=== PATIENT | male | born 1990 | race African-American/Black ===

== ENCOUNTER 2023-03-25 08:47 | Inpatient (IN) | payer MEDICAID, SELFPAY ==
--- NOTE | 2023-03-25 | ECG_ITS ---
Test Reason : ABD PAIN Blood Pressure : / mmHG Vent. Rate : 090 BPM Atrial Rate : 090 BPM P-R Int : 168 ms QRS Dur : 082 ms QT Int : 334 ms P-R-T Axes : 084 083 072 degrees QTc Int : 408 ms Normal sinus rhythm Normal ECG No previous ECGs available Referred By: Generic ED Physician Electronically Signed By:Francisco Pitts
--- NOTE | ~2023-03-25 | XR_ITS ---
EXAMINATION: XR CHEST CLINICAL INFORMATION: Chest pain COMPARISON: There are no previous exam available for comparison. TECHNIQUE: Frontal view of the chest was obtained. FINDINGS: The lungs are well-expanded with patchy opacity seen in both upper lobes likely infiltrate versus atelectasis. Rest of lungs are clear. The heart size and pulmonary vascularity is normal. No gross bony abnormality seen. XR/XR chest 1V IMPRESSION: Bilateral upper lobe patchy opacity likely infiltrate versus atelectasis.
--- NOTE | ~2023-03-25 | CT_ITS ---
EXAMINATION: CT CHEST WITH CONTRAST CLINICAL INFORMATION: Cough. History of tuberculosis. Evaluate for cavitary lung lesions. COMPARISON: Chest radiograph from 03/25/2023. TECHNIQUE: Multidetector volumetric CT imaging of the chest was obtained after the administration of 65 mL of Omnipaque 350 intravenous contrast without immediate adverse reactions. Axial MIP volume rendering provided. Sagittal and coronal reformatted images were obtained. This CT examination was performed using dose optimization techniques as appropriate, variously including the following: *Automated exposure control *Adjustment of mA and/or kV according to patient size (this includes techniques or standardized protocols for targeted exams where dose is matched to indication/reason for exam; i.e. extremities or head) *Use of iterative reconstruction technique DLP: 271 mGy-cm FINDINGS: LUNGS AND PLEURA: Trachea and central airways are widely patent and normal in caliber. No evidence of bronchial stenosis. There is mild respiratory motion on the images through the chest. In this patient with history of tuberculosis, there is a focus of old cystic bronchiectasis or thick-walled cavitary lesion of the posterolateral right upper lobe. A nodular opacity peripheral to this cavity measures approximately 0.8 cm transverse, 1 cm AP (images [id number], series 4). There are several micronodules in the posterior right upper lobe. There is a thin-walled 0.7 cm cystic lucency at the posterior right apex (image 102, series 4). There are clustered tree-in-bud nodules and patchy foci of consolidation with a few air bronchograms in the anterior left upper lobe. No cavitary change in the left upper lung. No pleural effusion or pneumothorax. CARDIOVASCULAR: Cardiac chambers are normal in size. No pericardial effusion. Pulmonary arteries and thoracic aorta are unremarkable. CORONARY ARTERY CALCIFICATION: None detected. MEDIASTINUM AND LOWER NECK: No mediastinal mass. The thyroid gland and esophagus are normal. LYMPHATICS: No axillary, hilar or mediastinal lymphadenopathy. Streak artifact is produced by foci of metallic density in the posterior carinal/subcarinal area. Correlate for a history of remote intervention/surgery in the mediastinum. UPPER ABDOMEN: Unremarkable. SKELETAL AND CHEST WALL: Thoracic vertebra have normal density, height and alignment. The disc spaces are maintained. No suspicious bone lesions. CT/CT chest w IV con IMPRESSION: In this patient with history of tuberculosis, there are micronodular and tree-in-bud opacities in upper lobes, predominantly anterior left upper lobe). Also, findings include a thick-walled cavitary focus in the posterior right upper lobe and patchy consolidation in the anterior left upper lobe, which is suspicious for active disease. These abnormalities could represent post primary tuberculosis. There is no associated lymphadenopathy or pleural effusion.
[2023-03-25 08:50] VITALS: BP 134/70; PULSE 115; RESP 16; TEMP 36.8; O2SAT 100; BMI 22.1
[2023-03-25 09:32] LABS: MANUAL DIFF FLAG NO
[2023-03-25 09:33] LABS: Basophils Percent Auto 0.9 % (0-2); Eosinophils Absolute Auto 0.1 X10*3/uL (0.0-0.4); Eosinophils Percent Auto 1.6 % (0-4); Hematocrit 39.5 % (42.0-52.0); Hemoglobin 13.4 g/dl (14.0-18.0); Imm Gran Abs Auto 0.01 X10*3/uL (0.00-0.03); Imm Gran Pct Auto 0.2 % (0.0-0.4); Lymphocytes Absolute Auto 1.5 X10*3/uL (1.2-4.9); Lymphocytes Percent Auto 33.6 % (20-40); Mean Corpuscular HGB Conc 33.9 g/dl (31.0-36.0); Mean Corpuscular Hemoglobin 29.1 pg (27.0-33.0); Mean Corpuscular Volume 85.7 fL (80.0-98.0); Mean Platelet Volume 10.2 fL (9.4-12.4); Monocytes Absolute Auto 0.4 X10*3/uL (0.1-1.2); Monocytes Percent Auto 9.6 % (2-11); Neutrophils Absolute Auto 2.4 x10*3/uL (2.0-8.3); Neutrophils Percent Auto 54.1 % (45-73); Platelet Count 163 X10*3/uL (160-400); Red Blood Count 4.61 X10*6/uL (4.60-5.80); Red Cell Distribution Width 12.9 % (11.0-16.0); White Blood Count 4.5 X10*3/uL (4.8-10.8)
--- NOTE | 2023-03-25 09:37 | ED.ABDPAIN ---
HPI - Abdominal Pain General Chief Complaint: Abdominal Pain Stated Complaint: Stomach Issues Time Seen by Provider: 03/25/23 09:03 Source: patient Mode of arrival: ambulatory Limitations: no limitations History of Present Illness HPI narrative: 33-year-old male hx of TB treated in 2021 presents with epigastric pain,chest pain, coughing up blood blood tinged sputum Pain has been present for the past few days worsening. No known sick contacts. He reports a similar episode happened to him in 2021 however at that time he had TB and had traveled from [place]. Patient denies fevers, chills, nausea, vomiting, headache, vision changes, dizziness,shortness of breath Related Data Home Medications Medication Instructions Recorded Confirmed No Known Home Meds 03/25/23 03/25/23 Allergies Allergy/AdvReac Type Severity Reaction Status Date / Time No Known Allergies Allergy Verified 03/25/23 13:23 Review of Systems Review of Systems Constitutional : No Weight loss, No Fever, No Chills, No Fatigue, No Malaise ENT/Mouth : No sore throat, No Rhinorrhea Eyes: No Eye Pain, No Swelling, No Redness Cardiovascular : No Chest Pain, No SOB, No Dyspnea on Exertion, No Orthopnea, No Edema, No Palpitations Respiratory : No Cough, No Sputum, No Wheezing Gastrointestinal : No Nausea, No Vomiting, No Diarrhea, No Constipation, + abdominal Pain, No Hematochezia, No Melena Genitourinary : No Dysuria, No Urinary Frequency, No Hematuria, Musculoskeletal : No joint pain, No Myalgias, No Joint Swelling Skin : No Skin Lesions, No rash Neuro : No Weakness, No Numbness, No Dizziness, No Headache Psych : No Anxiety/Panic, No Depression All other systems reviewed and are negative Yes all other systems are reviewed and are negative; No unobtainable due to endotracheal tube, Unobtainable due to mental condition, Unobtainable due to mental status or Other PMFSH Past Medical History Attestation statement: The following information was validated with the patient. Source: old records reviewed and nursing notes reviewed Social History Social History Advance Directives: No Advance Directives Information Provided: Yes Physical Exam ED Vital Signs: Vital Signs - 24 hr 03/25/23 08:50 03/25/23 12:09 03/25/23 13:10 Temperature 98.2 F Pulse Rate 115 H 74 Respiratory Rate 16 16 15 Blood Pressure 134/70 116/75 Pulse Oximetry 100 100 Oxygen Delivery Method Room Air Room Air BMI result Body Mass Index 22.1 vss Appearance: Alert.? Oriented X3.? No acute distress.? Head: Normocephalic, atraumatic, no step-offs or deformities Eyes: Pupils equal, round and reactive to light.? ENT: Pharynx normal.? Neck: Normal inspection.? Neck supple.? CVS: Normal heart rate and rhythm.? Pulses normal.? Respiratory: No respiratory distress.? Breath sounds normal.? Abdomen: Soft and nontender.? Skin: Skin warm and dry.? Normal skin color.? Normal skin turgor.? Extremities: No lower extremity edema.? No calf ttp. 5/5 strength to bilateral upper and lower extremities Neuro: Oriented X 3.? No motor deficit.? No sensory deficit. CN 2-12 intact Course Reevaluation(s) Reevaluation #1: CBC with a normocytic anemia does not require intervention. Chemistry unremarkable. D-dimer negative. Troponin negative, EKG nonischemic Time: 11:08 Reevaluation #2: X-ray did show bilateral upper lobe patchy opacities like infiltrate versus atelectasis. Patient has a history of TB in the past, upper infiltrates concerning for possible reactivation/active infection. I did speak to Infectious Disease about this case that recommends acid-fast sputum test x3. Agrees that patient should be admitted as he lives in a hotel at this time. Also recommends treatment for possible bronchitis/pneumonia will treat with ceftriaxone is a throughout. Plan at this time hospital admission CT chest with IV contrast ordered and pending Time: 11:38 Reevaluation #3: Call from [place] [facility] - Medical Decision Making Medical Decision Making [facility] Narrative: [id number] 33-year-old male presents with epigastric pain for the past few days worsening as well as cough w/ productive sputum ( blood tinged) and some a/c cp. Physical exam unremarkable. Concerns for GERD versus gastritis versus peptic ulcer disease vs TB, vs bronchitis. Unlikely perforated ulcer, acute abdomen, diverticulitis, pancreatitis, cholecystitis, cholangitis, appendicitis, obstruction. No signs of ACS, dissection, pulmonary embolism. Plan labs, imaging.. informed charge nurse patient should be placed on isolation precautions in the meantime. Differential Diagnosis Differential Diagnoses: The differential diagnosis associated with the presentation includes Concerns for GERD versus gastritis versus peptic ulcer disease vs TB, vs bronchitis. Unlikely perforated ulcer, acute abdomen, diverticulitis, pancreatitis, cholecystitis, cholangitis, appendicitis, obstruction. No signs of ACS, dissection, pulmonary embolism. Admission/Observation Consideration of admission/observation: Escalation of care including admission/observation considered Not indicated Lab Data MDM Lab Attestation statement: I reviewed the patient's lab results. 03/25/23 09:28 03/25/23 09:28 Labs: Lab Results 03/25/23 03/25/23 03/25/23 Range/Units 09:28 10:33 12:19 WBC 4.5 L (4.8-10.8) X10*3/uL RBC 4.61 (4.60-5.80) X10*6/uL Hgb 13.4 L (14.0-18.0) g/dl Hct 39.5 L (42.0-52.0) % MCV 85.7 (80.0-98.0) fL MCH 29.1 (27.0-33.0) pg MCHC 33.9 (31.0-36.0) g/dl RDW 12.9 (11.0-16.0) % Plt Count 163 (160-400) X10*3/uL MPV 10.2 (9.4-12.4) fL Immature Gran % (Auto) 0.2 (0.0-0.4) % Neut % (Auto) 54.1 (45-73) % Lymph % (Auto) 33.6 (20-40) % [place] % (Auto) 9.6 (2-11) % Eos % (Auto) 1.6 (0-4) % Baso % (Auto) 0.9 (0-2) % Lymph # (Auto) 1.5 (1.2-4.9) X10*3/uL [place] # (Auto) 0.4 (0.1-1.2) X10*3/uL Eos # (Auto) 0.1 (0.0-0.4) X10*3/uL Baso # (Auto) 0.0 (0.0-0.2) X10*3/uL Abs Immat Gran (auto) 0.01 (0.00-0.03) X10*3/uL Absolute Neuts (auto) 2.4 (2.0-8.3) x10*3/uL Absolute Nucleated RBC 0.000 (0.0-0.012) X10*3/uL Nucleated RBC % (auto) 0.0 (0.0-0.2) /100WBC PT 13.2 (11.1-13.3) SEC INR 1.1 (0.9-1.1) D-Dimer High Sensitivty < 150 NG/ML Sodium 142 (135-145) mmol/L Potassium 3.9 (3.3-5.1) mmol/L Chloride 103 (96-108) mmol/L Carbon Dioxide 28 (22-29) mmol/L Anion Gap 15 (12-20) BUN 18 H (9-16) mg/dL Creatinine 0.89 (0.5-1.4) mg/dL Estim Creat Clear Calc 105.8 Estimated GFR > 60 Random Glucose 98 (60-115) mg/dL Calcium 10.0 (8.4-10.2) mg/dL Troponin I High Sens < 2.7 (<3.5-35.0) ng/L HIV 1&2 Ab/P24 Ag 4thGn Nonreactive (Nonreactive) Independent Interpretation I performed an independent interpretation of an: EKG Radiology Impression Discussion of test interpretation with radiology: I have reviewed the radiologist's reading. Prescription Management I considered prescription management with: Other Medications Administered Discontinued Medications Generic Name Dose Route Start Last Admin Trade Name Freq PRN Reason Stop Dose Admin Ceftriaxone Sodium 1 gm/ 50 mls @ 100 mls/hr 03/25/23 11:15 03/25/23 13:20 Sodium Chloride IV 03/25/23 11:44 100 mls/hr ONCE ONE Administration Iohexol 65 ml 03/25/23 12:09 03/25/23 12:10 Iohexol 350 Mg/Ml 100 Ml Infus..Btl IV 03/25/23 12:10 65 ml ONCE ONE Administration Sodium Chloride 15 ml 03/25/23 11:06 03/25/23 12:09 Sodium Chloride 3 % Inhalation 15 Ml Vial.Neb INHALE 03/25/23 11:07 15 ml ONCE ONE Administration Critical Care Time Critical Care Time Critical Care Time: Yes Total Critical Care Time: 45 Attestation: I attest to this time spent taking care of the patient, obtaining history, physical, reviewing labs, imaging, speaking to my attending, speaking to specialist. Discharge Plan Discharge Clinical Impression: Reactivation TB, Epigastric pain Patient Disposition: Admitted As Inpatient Additional Instructions: Take your medications as prescribed. If you were prescribed antibiotics today, it is important that you take your medication to their entirety, do not skip any doses, do not finish them early. Follow-up with your primary care provider this week. Return to the emergency department with new or worsening symptoms. Such as fevers, chills, chest pain, shortness of breath, nausea, vomiting, dizziness, headache, vision changes, lethargy In case of emergency call 911 Your medications are at [address] [facility]. XR/XR chest 1V IMPRESSION: Bilateral upper lobe patchy opacity likely infiltrate versus atelectasis.
[2023-03-25 09:46] LABS: Anion Gap 15 (12-20); Blood Urea Nitrogen 18 mg/dL (9-16); Carbon Dioxide 28 mmol/L (22-29); Chloride 103 mmol/L (96-108); Creatinine Clr Calc Pharmacy 105.8; Estimated Glomerular Filt Rate > 60; Glucose Random 98 mg/dL (60-115); Potassium 3.9 mmol/L (3.3-5.1); Sodium 142 mmol/L (135-145)
--- NOTE | 2023-03-25 09:55 | MHC.EDTECH ---
Duplicate order for EKG. Second EKG nt needed per PA
[2023-03-25 09:56] LABS: Troponin-I High Sensitivity < 2.7 ng/L (<3.5-35.0)
[2023-03-25 10:47] LABS: INTERNATIONAL NORM RATIO 1.1 (0.9-1.1); Prothrombin Time 13.2 SEC (11.1-13.3)
[2023-03-25 10:49] LABS: D Dimer High Sensitivity < 150 NG/ML
[2023-03-25 12:09] VITALS: RESP 16; O2SAT 97
[2023-03-25] MEDS: Sodium Chloride 3 % Inhalation 15 ML VIAL.NEB INHALE (12:09)
[2023-03-25] MEDS: iohexoL 350 MG/ML 100 ML INFUS..BTL 65 ML IV (12:10)
[2023-03-25 13:04] LABS: HIV AB/AG Nonreactive (Nonreactive); HIV Num 1 0.05 S/CO (0.00-0.99)
--- NOTE | 2023-03-25 13:05 | PC.NURSE ---
per Adriana INFANTE no need for blood cultures prior to abx administration
[2023-03-25 13:10] VITALS: BP 116/75; PULSE 74; RESP 15; O2SAT 100
[2023-03-25] MEDS: cefTRIAXone sodium 1 GM in 0.9 % Sodium Chloride 50 ML IV (13:20)
--- NOTE | 2023-03-25 13:21 | P.HPHOSP_ITS ---
History of Present Illness Date of Service: 03/25/23 Attending physician on admission: Crispin Kaufman Chief Complaint: Abdominal pain, chest pain, hemoptysis Pt is a 33-year-old Stateless Creole-speaking male with a PMH significant for?TB in 2021 s/p treatment not on home medications who presents to the ED with?epigastric pain and hemoptysis for the past few days. Pt originally diagnosed with TB while living in [place], reports being treated for 8-9 months. Patient unsure medications he was taking. Patient denies any other PMH or being on any home medications. Recently moved to the area in November of 2022. Patient states symptoms began a few days ago when he developed cough with blood-tinged sputum, epigastric/central chest pain associated with coughing, and fatigue. Denies night sweats, but also notes he has recent unintended weight loss. Has felt feverish but has not taken his temperature. Pt states he felt much worse when he was first diagnosed with TB, as he had night sweats and was coughing up a large amount of blood at that time, not just blood-tinged sputum. He currently resides in a fdc and unable to self-isolate. In the ED pt was initially tachycardic up to 115, otherwise vitals WNL. Labs were largely unremarkable. WBC slightly low at 4.5, H&H of slightly low at 13 0.4/39.5. Electrolytes WNL. Renal function baseline. Troponin negative. CXR showed bilateral upper lobe patchy opacity likely infiltrate versus atelectasis. CT?of chest w/ contrast showing micro nodular and tree-in-bud opacities in upper lobes and patchy consolidation in the anterior left lobe, suspicious for active disease. Abnormalities could represent post primary tuberculosis. Did not find any associated lymphadenopathy or pleural effusion. EKG demonstrated normal sinus rhythm without evidence of significant ST elevations or depressions. Pt was treated with ceftriaxone and azithromycin. Pt will be admitted to the hospital for treatment and further evaluation of possible TB reactivation. Review of Systems 2 Review of Systems: Epigastric/chest pain associated with cough Blood tinged sputum Fatigue Unintended weight loss Subjective fever No chest pressure, palpitations Denies SOB PMFSH Medical History (Updated 03/25/23 @ 14:58 by ARELIS De La O) Tuberculosis Social History Household Members: Spouse and Children Do you presently have visiting nurse or other home services: No Patient Tobacco Use Status: Never used Tobacco Use of substances other than those prescribed or required for medical reasons: No Currently Displaying Signs/Symptoms of Drug Intoxication Withdrawal: No Have you been hit, kicked, punched, or otherwise hurt by someone within the past year? If so, by whom?: No Do you feel safe in your current relationship?: Yes Is there a partner from a previous relationship who is making you feel unsafe now?: No Are you made to feel afraid or neglected: No Advance Directives: No Advance Directives Information Provided: Yes Do you have thoughts of harming others: None Do you have a plan to hurt others: No Plan Recently lost weight without trying: Yes How much weight loss: Not applicable Eating poorly because of decreased appetite: No Nutrition screen score: 2 Nutrition Risks: No Nutritional Risk Poor oral hygiene: No service: No Meds Allergies Allergy/AdvReac Type Severity Reaction Status Date / Time No Known Allergies Allergy Verified 03/25/23 13:23 Active Medications: Current Medications Sodium Chloride (Sodium Chloride 3 % Inhalation 15 Ml Vial.Neb) 15 ml INHALE ONCE ONE Stop: 03/26/23 11:07 Sodium Chloride (Sodium Chloride 3 % Inhalation 15 Ml Vial.Neb) 15 ml INHALE ONCE ONE Stop: 03/27/23 11:07 Home Medications Medication Instructions Recorded Confirmed Last Taken Type No Known Home Meds 03/25/23 03/25/23 Unknown History Physical Exam 2 Vital Signs and Narrative: Vital Signs: Last Vital Signs Temp 98.2 F 03/25/23 08:50 Pulse 74 03/25/23 13:10 Resp 15 03/25/23 13:10 BP 116/75 03/25/23 13:10 Pulse Ox 100 03/25/23 13:10 O2 Del Method Room Air 03/25/23 13:10 BMI result Body Mass Index 22.1 Constitutional: Alert, in no acute distress. Mental Status: Oriented to person, place and time. Eyes: Pupils are equal, round, and reactive to light. Ear, Nose, and Throat: Oropharynx clear, mucous membranes moist. Ears and nose without deformities. Trachea midline. Respiratory: Clear to auscultation bilaterally. No wheezing, rales, or rhonchi. Cardiovascular: S1, S2 regular. No murmurs, rubs, or gallops. Gastrointestinal: Abdomen soft, non-tender, non-distended. Normal bowel sounds. Neurologic: Cranial nerves II-XII are grossly intact bilaterally. No focal neurological deficits. Moves all extremities spontaneously. Skin: Warm, dry. Musculoskeletal: No cyanosis or clubbing. Extremities: No edema. Psychiatric: Normal mood and affect. Results Labs 03/26/23 05:17 03/25/23 09:28 Labs: Laboratory Results - last 24 hr 03/25/23 03/25/23 03/25/23 09:28 10:33 12:19 MCV 85.7 MCH 29.1 MCHC 33.9 RDW 12.9 Plt Count 163 MPV 10.2 Immature Gran % (Auto) 0.2 Neut % (Auto) 54.1 Lymph % (Auto) 33.6 [place] % (Auto) 9.6 Eos % (Auto) 1.6 Baso % (Auto) 0.9 Lymph # (Auto) 1.5 [place] # (Auto) 0.4 Eos # (Auto) 0.1 Baso # (Auto) 0.0 Abs Immat Gran (auto) 0.01 Absolute Neuts (auto) 2.4 Absolute Nucleated RBC 0.000 Nucleated RBC % (auto) 0.0 PT 13.2 INR 1.1 D-Dimer High Sensitivty < 150 Anion Gap 15 Estim Creat Clear Calc 105.8 Estimated GFR > 60 Random Glucose 98 Calcium 10.0 HIV 1&2 Ab/P24 Ag 4thGn Nonreactive Imaging Radiologist's Impressions: Impressions Chest X-Ray 03/25/23 09:55 IMPRESSION: Bilateral upper lobe patchy opacity likely infiltrate versus atelectasis. Assessment and Plan (1) Hemoptysis: Status: Acute Plan Pt is a 33-year-old Stateless Creole-speaking male with a PMH significant for?TB in 2021 s/p treatment not on home medications who presents to the ED with?epigastric pain and hemoptysis for the past few days. Possible TB re-activation Pt with hemoptysis, fatigue, weight loss, cough, chest pain associated with cough Originally diagnosed with TB while living in [place], reports being treated for 8-9 [address] Chest CT with contrast with tree-in-bud opacities in upper lobes, suspicious for active disease Will treat for now with ceftriaxone and azithromycin, started Will check acid-fast sputum test x3 Infectious disease consult Will check respiratory panel Isolation, droplet and contact precautions Full Code Attending:?Dr. Kaufman DVT Prophylaxis: Lovenox Pt will require a hospitalization of at least two nights for treatment and further evaluation of possible TB reactivation. Pt will be treated with IV antibiotics, isolation, and specialist consultation. Quality Stroke Does the patient have a stroke diagnosis?: No VTE Prior VTE?: No VTE Risk Level:: Medical - moderate - high VTE Device Contraindication: Treatment Not Indicated VTE Drug Contraindication: N/A - Med Ordered
--- NOTE | 2023-03-25 13:26 | PHA.MEDREC ---
Pharmacy Consult ? Medication Reconciliation Pharmacy has completed the medication reconciliation. Ice Delivery Driver used on IPAD, patient confirmed he is not on any medications at home.
[2023-03-25] MEDS: Azithromycin 500 MG in 0.9 % Sodium Chloride 250 ML 125 MG IV (14:13)
--- NOTE | 2023-03-25 15:05 | W.PM.IDCN ---
History of Present Illness Data of Consult Service Date: 03/25/23 Requesting physician: Aj Carlisle Primary Care Provider: None Physician HPI Reason for consult: possible active tuberculosis He presents with 6/10 epigastric pain for 2-3 days to ER. He mentioned he has had some streaking hemoptysis as well. He had CXR and then CT with some small nodules and also upper lung opacities bilaterally. He has no fever or chills. He said he was diagnosed with tuberculosis in [place] several years ago and took tuberculosis medication he thinks. I have no records Also I do not have any records from [facility]. 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 Unobtainable due to mental condition [facility] Past Medical History Medical History (Updated 04/08/23 @ 00:03 by Mackenzie Roe) Tuberculosis Social History Social History Household Members: Spouse and Children Do you presently have visiting nurse or other home services: No Patient Tobacco Use Status: Never used Tobacco service: No Meds Allergies Allergy/AdvReac Type Severity Reaction Status Date / Time No Known Allergies Allergy Verified 03/25/23 13:23 Active Medications: Current Medications Acetaminophen (Acetaminophen 325 Mg Tablet) 650 mg PO Q6H PRN PRN Reason: Pain, Mild (Pain Scale 1-3) Benzonatate (Benzonatate 100 Mg Capsule) 100 mg PO TID PRN PRN Reason: Cough Docusate Sodium (Docusate Sodium 100 Mg Capsule) 100 mg PO DAILY PRN PRN Reason: Constipation Enoxaparin Sodium (Enoxaparin Sodium 40 Mg/0.4 Ml Syringe) 40 mg SUBCUT Q24H HERNAN Ceftriaxone Sodium 1 gm/ (Sodium Chloride) 50 mls @ 100 mls/hr IV Q24H HERNAN Azithromycin 500 mg/ Sodium (Chloride) 250 mls @ 125 mls/hr IV Q24H HERNAN Melatonin (Melatonin 3 Mg Tablet) 6 mg PO BEDTIME PRN PRN Reason: Insomnia Ondansetron HCl (Ondansetron Hcl 4 Mg/2 Ml Vial) 4 mg IVPUSH Q8H PRN PRN Reason: Nausea and Vomiting Sodium Chloride (Sodium Chloride 3 % Inhalation 15 Ml Vial.Neb) 15 ml INHALE ONCE ONE Stop: 03/26/23 11:07 Sodium Chloride (Sodium Chloride 3 % Inhalation 15 Ml Vial.Neb) 15 ml INHALE ONCE ONE Stop: 03/27/23 11:07 Sodium Chloride (0.9 % Sodium Chloride Flush 3 Ml Syringe) 3 ml IVFLUSH QSHIFT [facility] Home Medications ?Medication ?Instructions ?Recorded ?Confirmed ?Last Taken ?Type No Known Home Meds 03/25/23 03/25/23 Unknown History Physical Exam Vital Signs: Vital Signs: Last Vital Signs Temp 98.2 F 03/25/23 08:50 Pulse 74 03/25/23 13:10 Resp 15 03/25/23 13:10 BP 116/75 03/25/23 13:10 Pulse Ox 100 03/25/23 13:10 O2 Del Method Room Air 03/25/23 13:10 BMI result Body Mass Index 22.1 Const: Other: no oxygen General: cooperative HEENT: Head: Yes normal to inspection Face and sinus: Yes normal facial exam Mouth: Normal oral and palatal mucosa present Teeth and gingiva: dentition normal Eyes: General: appearance normal, both eyes and all related structures Pupils: Equal, round and reactive pupils present Resp: Effort & Inspection: normal respiratory effort Cardio: Rate: regular rate Rhythm: regular rhythm GI: Palpation (GI): Soft to palpation and nontender : General: Yes no CVA tenderness Back/Spine/Pelvis: Back: no CVA tenderness Skin: General skin exam: no rashes or lesions noted Neuro: General: moves all extremities Cranial nerves: Yes Equal, round and reactive pupils present Extrem: General: Yes normal to inspection Psych: Appearance: grossly normal Results Labs 03/26/23 05:17 03/25/23 09:28 Labs: Short CBC 03/25/23 Range/Units 09:28 WBC 4.5 L (4.8-10.8) X10*3/uL Hgb 13.4 L (14.0-18.0) g/dl Hct 39.5 L (42.0-52.0) % Plt Count 163 (160-400) X10*3/uL BMP 03/25/23 09:28 Sodium 142 Potassium 3.9 Chloride 103 Carbon Dioxide 28 BUN 18 H Creatinine 0.89 Calcium 10.0 Assessment and Plan (1) Hemoptysis: Status: Resolved There concern over active tuberculosis with reactivation or new infection He had supposedly been treated not sure how long for active pulmonary TB. Check sputum daily x 3 for AFB smear and culture Respiratory isolation and DPH contact if positive since lives in hotel Would treat 3-5 days IV Ceftriaxone and Zmax for CAP GI eval if still has pain Check HIV test (2) Epigastric pain: Status: Resolved
[2023-03-25] MEDS: Enoxaparin Sodium 40 MG/0.4 ML SYRINGE SUBCUT (15:44)
[2023-03-25 16:14] VITALS: BP 141/88; PULSE 76; RESP 17; TEMP 36.9; O2SAT 100
[2023-03-25] MEDS: 0.9 % Sodium Chloride Flush 3 ML SYRINGE IVFLUSH (16:55)
[2023-03-25 19:54] VITALS: BP 127/73; PULSE 64; RESP 16; TEMP 36.6; O2SAT 100
[2023-03-26] MEDS: 0.9 % Sodium Chloride Flush 3 ML SYRINGE IVFLUSH ×3 (00:30→14:38)
[2023-03-26 03:20] VITALS: BP 119/83; PULSE 80; RESP 14; TEMP 36.6; O2SAT 100
[2023-03-26 05:38] LABS: Hemoglobin 13.2 g/dl (14.0-18.0); Mean Corpuscular HGB Conc 33.8 g/dl (31.0-36.0); Mean Corpuscular Hemoglobin 29.3 pg (27.0-33.0); Mean Corpuscular Volume 86.7 fL (80.0-98.0); Mean Platelet Volume 10.6 fL (9.4-12.4); Platelet Count 171 X10*3/uL (160-400); White Blood Count 4.4 X10*3/uL (4.8-10.8)
[2023-03-26 08:00] VITALS: BP 105/63; PULSE 64; RESP 18; TEMP 36.7; O2SAT 100
--- NOTE | 2023-03-26 09:05 | MHC.CM.PN ---
Addendum entered by Enedina Crouch RN 03/26/23 09:09: [employer] INSURANCE CARD IS ON FILE BUT BENEFITS HAVE NOT YET BEEN VERIFIED Original Note: PATIENT ON TB PRECAUTIONS PER REIVEW OF CHART AND CONVERSATION WITH RN, PATIENT IS INDEPENDENT WITH ADLS. HE DOES NOT CONVERSE IN [place]. PLANS ARE FOR TB R/O AND PLAN FOR DC NEEDS AT THIS TIME. IT DOES NOT APPEARS THAT PATIENT HAS INSURANCE BENEFITS. FACE SHEET TO BE FAXED TO [employer] FOR REVIEW AND POSSIBLE ASSIST.
[2023-03-26] MEDS: cefTRIAXone sodium 1 GM in 0.9 % Sodium Chloride 50 ML IV (11:12)
[2023-03-26] MEDS: Azithromycin 500 MG in 0.9 % Sodium Chloride 250 ML 125 MG IV (12:02)
--- NOTE | 2023-03-26 12:40 | P.PNIM_ITS ---
Subjective Subjective Date of Service: 03/26/23 Interval History: seen and evlauated feels better no chest pain no more hemoptysis Review of Systems Review of Systems: Yes all other systems are reviewed and are negative Physical Exam 2 Vital Signs: Vital Signs: Last Vital Signs Temp 98.1 F 03/26/23 08:00 Pulse 64 03/26/23 08:00 Resp 18 03/26/23 08:00 BP 105/63 03/26/23 08:00 Pulse Ox 100 03/26/23 08:00 O2 Del Method Room Air 03/26/23 08:00 BMI result Body Mass Index 22.1 Const: Other: Constitutional : Awake, interactive, not in distress Neck : Normal inspection, Supple Cardiovascular : RRR, no JVP, no lower extremity edema Respiratory : good bilateral air entry, no crackles, wheezes or rhonchi Gastrointestinal: soft, lax, Normal bowel sounds, Non tender Skin : Warm, Dry Neurological : Alert & oriented x3, No focal deficit Objective Data Active Medications Acetaminophen (Acetaminophen 325 Mg Tablet) 650 mg PO Q6H PRN PRN Reason: Pain, Mild (Pain Scale 1-3) Benzonatate (Benzonatate 100 Mg Capsule) 100 mg PO TID PRN PRN Reason: Cough Docusate Sodium (Docusate Sodium 100 Mg Capsule) 100 mg PO DAILY PRN PRN Reason: Constipation Enoxaparin Sodium (Enoxaparin Sodium 40 Mg/0.4 Ml Syringe) 40 mg SUBCUT Q24H [facility] Last Admin: 03/25/23 15:44 Dose: 40 mg Documented By: NINI Ceftriaxone Sodium 1 gm/ (Sodium Chloride) 50 mls @ 100 mls/hr IV Q24H [facility] Last Infusion: 03/26/23 11:49 Dose: Infused Documented By: TARIK Azithromycin 500 mg/ Sodium (Chloride) 250 mls @ 125 mls/hr IV Q24H [facility] Last Admin: 03/26/23 12:02 Dose: 125 mls/hr Documented By: TARIK Melatonin (Melatonin 3 Mg Tablet) 6 mg PO BEDTIME PRN PRN Reason: Insomnia Ondansetron HCl (Ondansetron Hcl 4 Mg/2 Ml Vial) 4 mg IVPUSH Q8H PRN PRN Reason: Nausea and Vomiting Sodium Chloride (Sodium Chloride 3 % Inhalation 15 Ml Vial.Neb) 15 ml INHALE ONCE ONE Stop: 03/27/23 11:07 Sodium Chloride (0.9 % Sodium Chloride Flush 3 Ml Syringe) 3 ml IVFLUSH QSHIFT [facility] Last Admin: 03/26/23 10:22 Dose: 3 ml Documented By: TARIK Labs 03/26/23 05:17 03/25/23 09:28 Labs: Laboratory Results - last 24 hr 03/25/23 03/26/23 12:19 05:17 MCV 86.7 MCH 29.3 MCHC 33.8 RDW 13.0 Plt Count 171 MPV 10.6 Absolute Nucleated RBC 0.000 Nucleated RBC % (auto) 0.0 Hold Purple Top Cancelled HIV 1&2 Ab/P24 Ag 4thGn Nonreactive Assessment and Plan (1) Hemoptysis: Status: Acute Plan Pt is a 33-year-old [place] Creole-speaking male with a PMH significant for?TB in 2021 s/p treatment not on home medications who presents to the ED with?epigastric pain and hemoptysis for the past few days. Hemoptysis Concern of TB reactivation vs CAP Pending cultures Pending Acid fast smear and culture Chest CT with contrast with tree-in-bud opacities in upper lobes, suspicious for active disease Continue ceftriaxone and azithromycin, started Infectious disease consult pending respiratory panel Isolation, droplet and contact precautions Full Code DVT Prophylaxis: Lovenox Pt will require a hospitalization overnight for further evaluation of possible TB reactivation. Pt will be treated with IV antibiotics, isolation, and specialist consultation. Quality Stroke Does the patient have a stroke diagnosis?: No VTE Prior VTE?: No VTE Risk Level:: Medical - moderate - high VTE Device Contraindication: Treatment Not Indicated VTE Drug Contraindication: N/A - Med Ordered
[2023-03-26 13:53] LABS: Adenovirus PCR Not Detected (Not Detect.); Bordetella parapertussis PCR Not Detected (Not Detect.); Bordetella pertussis PCR Not Detected (Not Detect.); Chlamydia pneumoniae PCR Not Detected (Not Detect.); Coronavirus 229E PCR Not Detected (Not Detect.); Coronavirus HKU1 PCR Not Detected (Not Detect.); Coronavirus NL63 PCR Not Detected (Not Detect.); Coronavirus OC43 PCR Not Detected (Not Detect.); Human metapneumovirus PCR Not Detected (Not Detect.); Influenza A PCR Not Detected (Not Detect.); Influenza B PCR Not Detected (Not Detect.); Mycoplasma pneumoniae PCR Not Detected (Not Detect.); Parainfluenza 1 PCR Not Detected (Not Detect.); Parainfluenza 2 PCR Not Detected (Not Detect.); Parainfluenza 3 PCR Not Detected (Not Detect.); Parainfluenza 4 PCR Not Detected (Not Detect.); RSV PCR Not Detected (Not Detect.); Rhino/Enterovirus PCR Not Detected (Not Detect.); SARS-CoV-2 PCR Not Detected (Not Detect.)
[2023-03-26] MEDS: Enoxaparin Sodium 40 MG/0.4 ML SYRINGE SUBCUT (14:37)
--- NOTE | 2023-03-26 14:45 | PC.NURSE ---
Per [facility] 2 acid fast sputum specimens collected 03/25. One acid fast sputum collected today at 11:20 by this RN.
[2023-03-26 15:45] VITALS: BP 115/67; PULSE 67; RESP 18; TEMP 37; O2SAT 99
[2023-03-26 19:42] VITALS: BP 101/68; PULSE 74; RESP 18; TEMP 36.7; O2SAT 99
[2023-03-27 04:00] VITALS: BP 111/72; PULSE 77; RESP 16; TEMP 36.7; O2SAT 100
[2023-03-27] MEDS: 0.9 % Sodium Chloride Flush 3 ML SYRINGE IVFLUSH ×4 (06:08→21:07)
[2023-03-27 07:39] VITALS: BP 116/73; PULSE 66; RESP 16; TEMP 36.5; O2SAT 99
[2023-03-27] MEDS: cefTRIAXone sodium 1 GM in 0.9 % Sodium Chloride 50 ML IV (11:10)
[2023-03-27] MEDS: Azithromycin 500 MG in 0.9 % Sodium Chloride 250 ML 125 MG IV (11:50)
--- NOTE | 2023-03-27 11:54 | P.PNIM_ITS ---
Subjective Subjective Date of Service: 03/27/23 Interval History: seen and evlauated feels better no chest pain no more hemoptysis Review of Systems Review of Systems: Yes all other systems are reviewed and are negative Physical Exam 2 Vital Signs: Vital Signs: Last Vital Signs Temp 97.7 F 03/27/23 07:39 Pulse 66 03/27/23 07:39 Resp 16 03/27/23 07:39 BP 116/73 03/27/23 07:39 Pulse Ox 99 03/27/23 07:39 O2 Del Method Room Air 03/27/23 04:00 BMI result Body Mass Index 22.1 Const: Other: Constitutional : Awake, interactive, not in distress Neck : Normal inspection, Supple Cardiovascular : RRR, no JVP, no lower extremity edema Respiratory : good bilateral air entry, no crackles, wheezes or rhonchi Gastrointestinal: soft, lax, Normal bowel sounds, Non tender Skin : Warm, Dry Neurological : Alert & oriented x3, No focal deficit Objective Data Active Medications Acetaminophen (Acetaminophen 325 Mg Tablet) 650 mg PO Q6H PRN PRN Reason: Pain, Mild (Pain Scale 1-3) Benzonatate (Benzonatate 100 Mg Capsule) 100 mg PO TID PRN PRN Reason: Cough Docusate Sodium (Docusate Sodium 100 Mg Capsule) 100 mg PO DAILY PRN PRN Reason: Constipation Enoxaparin Sodium (Enoxaparin Sodium 40 Mg/0.4 Ml Syringe) 40 mg SUBCUT Q24H [facility] Last Admin: 03/26/23 14:37 Dose: 40 mg Documented By: TARIK Ceftriaxone Sodium 1 gm/ (Sodium Chloride) 50 mls @ 100 mls/hr IV Q24H [facility] Last Infusion: 03/27/23 11:40 Dose: Infused Documented By: TARIK Azithromycin 500 mg/ Sodium (Chloride) 250 mls @ 125 mls/hr IV Q24H [facility] Last Infusion: 03/26/23 14:30 Dose: Infused Documented By: TARIK Melatonin (Melatonin 3 Mg Tablet) 6 mg PO BEDTIME PRN PRN Reason: Insomnia Ondansetron HCl (Ondansetron Hcl 4 Mg/2 Ml Vial) 4 mg IVPUSH Q8H PRN PRN Reason: Nausea and Vomiting Sodium Chloride (0.9 % Sodium Chloride Flush 3 Ml Syringe) 3 ml IVFLUSH QSHIFT [facility] Last Admin: 03/27/23 09:20 Dose: 3 ml Documented By: TARIK Labs 03/26/23 05:17 03/25/23 09:28 Labs: Laboratory Results - last 24 hr 03/25/23 15:22 Respiratory Panel [place] See Note Adenovirus (Rapid PCR) Not Detected B.pert (TEM-PCR) Not Detected B.parapertussis DNA PCR Not Detected C. pneumoniae DNA (PCR) Not Detected Coronavirus OC43 (PCR) Not Detected Coronavirus HKU1 (PCR) Not Detected Coronavirus 229E (PCR) Not Detected Coronavirus NL63 (PCR) Not Detected Human Metapneumovir PCR Not Detected Influenza A (RT-PCR) Not Detected Influenza B (RT-PCR) Not Detected M. pneumoniae (PCR) Not Detected Parainfluenza 1 (PCR) Not Detected Parainfluenza 2 (PCR) Not Detected Parainfluenza 3 (PCR) Not Detected Parainfluenza 4 (PCR) Not Detected RSV (PCR) Not Detected Entero/Rhino (PCR) Not Detected SARS-CoV-2 RNA (RT-PCR) Not Detected Assessment and Plan (1) Hemoptysis: Status: Acute Plan Pt is a 33-year-old [place] Creole-speaking male with a PMH significant for?TB in 2021 s/p treatment not on home medications who presents to the ED with?epigastric pain and hemoptysis for the past few days. Hemoptysis Concern of TB reactivation vs CAP Pending cultures Pending Acid fast smear and culture Chest CT with contrast with tree-in-bud opacities in upper lobes, suspicious for active disease Continue ceftriaxone and azithromycin, started Infectious disease consult pending respiratory panel Isolation, droplet and contact precautions Full Code DVT Prophylaxis: Lovenox Pt will require a hospitalization overnight for further evaluation of possible TB reactivation. Pt will be treated with IV antibiotics, isolation, and specialist consultation. Quality Stroke Does the patient have a stroke diagnosis?: No VTE Prior VTE?: No VTE Risk Level:: Medical - moderate - high VTE Device Contraindication: Treatment Not Indicated VTE Drug Contraindication: N/A - Med Ordered
--- NOTE | 2023-03-27 12:07 | PC.NURSE ---
Addendum entered by Krys Romero RN 03/27/23 13:01: Sputum spec collected and sent to lab. Original Note: Per MD Carter, Pt should have 1 more acid fast bacilli sputum specimen sent to lab, due to the fact that two specimens were sent on the . Per sputum should be sent 1 daily for a total of three specimens. Pt aware, pending last sputum collection.
[2023-03-27] MEDS: Enoxaparin Sodium 40 MG/0.4 ML SYRINGE SUBCUT (14:43)
[2023-03-27 15:31] VITALS: BP 122/65; PULSE 71; RESP 18; TEMP 36.8; O2SAT 99
[2023-03-27 19:48] VITALS: BP 128/77; PULSE 65; RESP 18; TEMP 36.8; O2SAT 100
[2023-03-28 04:00] VITALS: BP 125/62; PULSE 70; RESP 18; TEMP 36.7; O2SAT 98
[2023-03-28 07:58] VITALS: BP 135/77; PULSE 65; RESP 18; TEMP 36.7; O2SAT 100
--- NOTE | 2023-03-28 10:47 | P.PNIM_ITS ---
Subjective Subjective Date of Service: 03/28/23 Interval History: seen and evlauated feels better no chest pain no more hemoptysis Pending Acid-fast studies Review of Systems Review of Systems: Yes all other systems are reviewed and are negative Physical Exam 2 Vital Signs: Vital Signs: Last Vital Signs Temp 98.1 F 03/28/23 07:58 Pulse 65 03/28/23 07:58 Resp 18 03/28/23 07:58 BP 135/77 03/28/23 07:58 Pulse Ox 100 03/28/23 07:58 O2 Del Method Room Air 03/28/23 07:58 BMI result Body Mass Index 22.1 Const: Other: Constitutional : Awake, interactive, not in distress Neck : Normal inspection, Supple Cardiovascular : RRR, no JVP, no lower extremity edema Respiratory : good bilateral air entry, no crackles, wheezes or rhonchi Gastrointestinal: soft, lax, Normal bowel sounds, Non tender Skin : Warm, Dry Neurological : Alert & oriented x3, No focal deficit Objective Data Active Medications Acetaminophen (Acetaminophen 325 Mg Tablet) 650 mg PO Q6H PRN PRN Reason: Pain, Mild (Pain Scale 1-3) Benzonatate (Benzonatate 100 Mg Capsule) 100 mg PO TID PRN PRN Reason: Cough Docusate Sodium (Docusate Sodium 100 Mg Capsule) 100 mg PO DAILY PRN PRN Reason: Constipation Enoxaparin Sodium (Enoxaparin Sodium 40 Mg/0.4 Ml Syringe) 40 mg SUBCUT Q24H [facility] Last Admin: 03/27/23 14:43 Dose: 40 mg Documented By: TARIK Guaifenesin (Guaifenesin La 600 Mg Tab.Er.12h) 600 mg PO BID [facility] Ceftriaxone Sodium 1 gm/ (Sodium Chloride) 50 mls @ 100 mls/hr IV Q24H [facility] Last Infusion: 03/27/23 11:40 Dose: Infused Documented By: TARIK Azithromycin 500 mg/ Sodium (Chloride) 250 mls @ 125 mls/hr IV Q24H [facility] Last Infusion: 03/27/23 14:02 Dose: Infused Documented By: TARIK Melatonin (Melatonin 3 Mg Tablet) 6 mg PO BEDTIME PRN PRN Reason: Insomnia Omeprazole (Omeprazole 20 Mg Capsule.) 20 mg PO BID@0630,1630 [facility] Ondansetron HCl (Ondansetron Hcl 4 Mg/2 Ml Vial) 4 mg IVPUSH Q8H PRN PRN Reason: Nausea and Vomiting Sodium Chloride (0.9 % Sodium Chloride Flush 3 Ml Syringe) 3 ml IVFLUSH QSHIFT [facility] Last Admin: 03/27/23 21:07 Dose: 3 ml Documented By: RILEY Labs 03/26/23 05:17 03/25/23 09:28 Labs: Laboratory Results - last 24 hr 03/28/23 09:39 Hold Purple Top SEE NOTE Assessment and Plan (1) Hemoptysis: Status: Acute Plan Pt is a 33-year-old [place] Creole-speaking male with a PMH significant for?TB in 2021 s/p treatment not on home medications who presents to the ED with?epigastric pain and hemoptysis for the past few days. Hemoptysis Concern of TB reactivation vs CAP Chest CT with contrast with tree-in-bud opacities in upper lobes, suspicious for active disease Pending Acid fast smear and culture Negative respiratory panel Isolation, droplet and contact precautions Infectious disease input appreciated Continue ceftriaxone and azithromycin, started Full Code DVT Prophylaxis: Lovenox Pt will require a hospitalization overnight for further evaluation of possible TB reactivation. Pt will be treated with IV antibiotics, isolation, and specialist consultation. Quality Stroke Does the patient have a stroke diagnosis?: No VTE Prior VTE?: No VTE Risk Level:: Medical - moderate - high VTE Device Contraindication: Treatment Not Indicated VTE Drug Contraindication: N/A - Med Ordered
[2023-03-28] MEDS: guaiFENesin LA 600 MG TAB.ER.12H PO ×2 (11:10→21:33)
[2023-03-28] MEDS: Omeprazole 20 MG CAPSULE.DR PO ×2 (11:10→17:35)
[2023-03-28] MEDS: 0.9 % Sodium Chloride Flush 3 ML SYRINGE IVFLUSH ×3 (11:12→21:34)
[2023-03-28] MEDS: cefTRIAXone sodium 1 GM in 0.9 % Sodium Chloride 50 ML IV (11:23)
[2023-03-28] MEDS: Azithromycin 500 MG in 0.9 % Sodium Chloride 250 ML 125 MG IV (12:21)
[2023-03-28] MEDS: Enoxaparin Sodium 40 MG/0.4 ML SYRINGE SUBCUT (14:31)
[2023-03-28 19:37] VITALS: BP 145/87; PULSE 57; RESP 15; TEMP 36.7; O2SAT 99
[2023-03-29 04:00] VITALS: BP 123/78; PULSE 71; RESP 16; TEMP 36.7; O2SAT 99
[2023-03-29] MEDS: Omeprazole 20 MG CAPSULE.DR PO ×2 (06:38→16:32)
[2023-03-29 08:00] VITALS: BP 125/72; PULSE 65; RESP 18; TEMP 36.1; O2SAT 100
[2023-03-29] MEDS: guaiFENesin LA 600 MG TAB.ER.12H PO ×2 (08:44→22:22)
[2023-03-29] MEDS: 0.9 % Sodium Chloride Flush 3 ML SYRINGE IVFLUSH ×3 (08:49→22:22)
--- NOTE | 2023-03-29 09:36 | HO.PM.IMPN ---
Subjective Subjective Date of Service: 03/29/23 Interval History: seen and evlauated reproting more hemoptysis (bloody tinged sputum) Pending Acid-fast studies Review of Systems Review of Systems: Yes all other systems are reviewed and are negative Physical Exam Vital Signs: Vital Signs: Last Vital Signs Temp 97 F 03/29/23 08:00 Pulse 65 03/29/23 08:00 Resp 18 03/29/23 08:00 BP 125/72 03/29/23 08:00 Pulse Ox 100 03/29/23 08:00 O2 Del Method Room Air 03/29/23 08:00 BMI result Body Mass Index 22.1 Const: Other: Constitutional : Awake, interactive, not in distress Neck : Normal inspection, Supple Cardiovascular : RRR, no JVP, no lower extremity edema Respiratory : good bilateral air entry, no crackles, wheezes or rhonchi Gastrointestinal: soft, lax, Normal bowel sounds, Non tender Skin : Warm, Dry Neurological : Alert & oriented x3, No focal deficit Objective Data Active Medications Acetaminophen (Acetaminophen 325 Mg Tablet) 650 mg PO Q6H PRN PRN Reason: Pain, Mild (Pain Scale 1-3) Benzonatate (Benzonatate 100 Mg Capsule) 100 mg PO TID PRN PRN Reason: Cough Docusate Sodium (Docusate Sodium 100 Mg Capsule) 100 mg PO DAILY PRN PRN Reason: Constipation Enoxaparin Sodium (Enoxaparin Sodium 40 Mg/0.4 Ml Syringe) 40 mg SUBCUT Q24H [facility] Last Admin: 03/28/23 14:31 Dose: 40 mg Documented By: LIZANDRO Guaifenesin (Guaifenesin La 600 Mg Tab.Er.12h) 600 mg PO BID [facility] Last Admin: 03/29/23 08:44 Dose: 600 mg Documented By: LIZANDRO Ceftriaxone Sodium 1 gm/ (Sodium Chloride) 50 mls @ 100 mls/hr IV Q24H [facility] Last Infusion: 03/28/23 12:05 Dose: Infused Documented By: LIZANDRO Azithromycin 500 mg/ Sodium (Chloride) 250 mls @ 125 mls/hr IV Q24H [facility] Last Infusion: 03/28/23 14:26 Dose: Infused Documented By: LIZANDRO Melatonin (Melatonin 3 Mg Tablet) 6 mg PO BEDTIME PRN PRN Reason: Insomnia Omeprazole (Omeprazole 20 Mg Capsule.) 20 mg PO BID@0630,1630 [facility] Last Admin: 03/29/23 06:38 Dose: 20 mg Documented By: HOUSTON Ondansetron HCl (Ondansetron Hcl 4 Mg/2 Ml Vial) 4 mg IVPUSH Q8H PRN PRN Reason: Nausea and Vomiting Sodium Chloride (0.9 % Sodium Chloride Flush 3 Ml Syringe) 3 ml IVFLUSH QSHIFT [facility] Last Admin: 03/29/23 08:49 Dose: 3 ml Documented By: LIZANDRO Labs 03/26/23 05:17 03/25/23 09:28 Labs: Laboratory Results - last 24 hr 03/28/23 09:39 Hold Purple Top SEE NOTE Assessment and Plan (1) Hemoptysis: Status: Acute Plan Pt is a 33-year-old Citizen Of [place] Creole-speaking male with a PMH significant for?TB in 2021 s/p treatment not on home medications who presents to the ED with?epigastric pain and hemoptysis for the past few days. Hemoptysis Concern of TB reactivation vs CAP Chest CT with contrast with tree-in-bud opacities in upper lobes, suspicious for active disease Pending Acid fast smear and culture (They were sent out on 03/28; expected to hear results before the end of the week) T-Spot Pending as well Negative respiratory panel Isolation, droplet and contact precautions Infectious disease input appreciated Continue ceftriaxone and azithromycin, started Full Code DVT Prophylaxis: Lovenox Pt will require a hospitalization overnight for further evaluation of possible TB reactivation. Pt will be treated with IV antibiotics, isolation, and specialist consultation pending testing results Quality Stroke Does the patient have a stroke diagnosis?: No VTE Prior VTE?: No VTE Risk Level:: Medical - moderate - high VTE Device Contraindication: Treatment Not Indicated VTE Drug Contraindication: N/A - Med Ordered
[2023-03-29] MEDS: cefTRIAXone sodium 1 GM in 0.9 % Sodium Chloride 50 ML IV (12:02)
[2023-03-29] MEDS: Azithromycin 500 MG in 0.9 % Sodium Chloride 250 ML 125 MG IV (12:56)
[2023-03-29 15:20] VITALS: BP 134/67; PULSE 82; RESP 18; TEMP 36.8; O2SAT 100
[2023-03-29] MEDS: Enoxaparin Sodium 40 MG/0.4 ML SYRINGE SUBCUT (15:21)
[2023-03-29 15:24] VITALS: BP 134/67; PULSE 65; RESP 18; TEMP 36.8; O2SAT 95
[2023-03-29 19:29] VITALS: BP 139/69; PULSE 64; RESP 18; TEMP 36.6; O2SAT 99
[2023-03-30 04:00] VITALS: BP 112/77; PULSE 76; RESP 16; TEMP 36.4; O2SAT 98
[2023-03-30] MEDS: Omeprazole 20 MG CAPSULE.DR PO ×2 (06:03→15:43)
[2023-03-30 07:29] VITALS: BP 120/79; PULSE 70; RESP 16; TEMP 36.6; O2SAT 99
--- NOTE | 2023-03-30 09:37 | HO.PM.IMPN ---
Subjective Subjective Date of Service: 03/30/23 Interval History: seen and evlauated reproting more hemoptysis (bloody tinged sputum) Pending Acid-fast studies Review of Systems Review of Systems: Yes all other systems are reviewed and are negative Physical Exam Vital Signs: Vital Signs: Last Vital Signs Temp 97.8 F 03/30/23 07:29 Pulse 70 03/30/23 07:29 Resp 16 03/30/23 07:29 BP 120/79 03/30/23 07:29 Pulse Ox 99 03/30/23 07:29 O2 Del Method Room Air 03/30/23 07:29 BMI result Body Mass Index 22.1 Const: Other: Constitutional : Awake, interactive, not in distress Neck : Normal inspection, Supple Cardiovascular : RRR, no JVP, no lower extremity edema Respiratory : good bilateral air entry, no crackles, wheezes or rhonchi Gastrointestinal: soft, lax, Normal bowel sounds, Non tender Skin : Warm, Dry Neurological : Alert & oriented x3, No focal deficit Objective Data Active Medications Acetaminophen (Acetaminophen 325 Mg Tablet) 650 mg PO Q6H PRN PRN Reason: Pain, Mild (Pain Scale 1-3) Benzonatate (Benzonatate 100 Mg Capsule) 100 mg PO TID PRN PRN Reason: Cough Docusate Sodium (Docusate Sodium 100 Mg Capsule) 100 mg PO DAILY PRN PRN Reason: Constipation Enoxaparin Sodium (Enoxaparin Sodium 40 Mg/0.4 Ml Syringe) 40 mg SUBCUT Q24H [facility] Last Admin: 03/29/23 15:21 Dose: 40 mg Documented By: LIZANDRO Guaifenesin (Guaifenesin La 600 Mg Tab.Er.12h) 600 mg PO BID [facility] Last Admin: 03/29/23 22:22 Dose: 600 mg Documented By: HOUSTON Ceftriaxone Sodium 1 gm/ (Sodium Chloride) 50 mls @ 100 mls/hr IV Q24H [facility] Last Infusion: 03/29/23 12:52 Dose: Infused Documented By: LIZANDRO Azithromycin 500 mg/ Sodium (Chloride) 250 mls @ 125 mls/hr IV Q24H [facility] Last Infusion: 03/29/23 15:01 Dose: Infused Documented By: LIZANDRO Melatonin (Melatonin 3 Mg Tablet) 6 mg PO BEDTIME PRN PRN Reason: Insomnia Omeprazole (Omeprazole 20 Mg Capsule.) 20 mg PO BID@0630,1630 [facility] Last Admin: 03/30/23 06:03 Dose: 20 mg Documented By: HOUSTON Ondansetron HCl (Ondansetron Hcl 4 Mg/2 Ml Vial) 4 mg IVPUSH Q8H PRN PRN Reason: Nausea and Vomiting Sodium Chloride (0.9 % Sodium Chloride Flush 3 Ml Syringe) 3 ml IVFLUSH QSHIFT [facility] Last Admin: 03/29/23 22:22 Dose: 3 ml Documented By: HOUSTON Labs 03/26/23 05:17 03/25/23 09:28 Assessment and Plan (1) Hemoptysis: Status: Acute Plan 33M [place] Creole-speaking male with a PMH significant for?TB in 2021 s/p treatment not on home medications who presented to the ED with?epigastric pain and hemoptysis for the past few days. Hemoptysis Concern of TB reactivation vs CAP Chest CT with contrast with tree-in-bud opacities in upper lobes, suspicious for active disease Pending Acid fast smear and culture (They were sent out on 03/28; expected to hear results before the end of the week) T-Spot Pending as well Negative respiratory panel Isolation, droplet and contact precautions Infectious disease input appreciated Completed 5 days ceftriaxone and azithromycin Full Code DVT Prophylaxis: Lovenox Pt will require a hospitalization overnight for further evaluation of possible TB reactivation. Pt will be treated with IV antibiotics, isolation, and specialist consultation pending testing results Quality Stroke Does the patient have a stroke diagnosis?: No VTE Prior VTE?: No VTE Risk Level:: Medical - moderate - high VTE Device Contraindication: Treatment Not Indicated VTE Drug Contraindication: N/A - Med Ordered
[2023-03-30] MEDS: 0.9 % Sodium Chloride Flush 3 ML SYRINGE IVFLUSH ×3 (11:35→21:11)
[2023-03-30] MEDS: guaiFENesin LA 600 MG TAB.ER.12H PO ×2 (11:35→21:11)
--- NOTE | 2023-03-30 12:15 | MHC.CM.PN ---
per rounds pt not ready for dc waiting for sputum
[2023-03-30 15:13] VITALS: BP 125/75; PULSE 72; RESP 18; TEMP 37.1; O2SAT 99
[2023-03-30] MEDS: Enoxaparin Sodium 40 MG/0.4 ML SYRINGE SUBCUT (15:43)
[2023-03-30 19:40] VITALS: BP 131/77; PULSE 68; RESP 18; TEMP 36.6; O2SAT 99
[2023-03-30 21:33] LABS: TS Negative Control Passed; TS Panel A 8; TS Panel B 24; TS Positive Control Passed; TSpotTB Positive (Negative)
[2023-03-31 04:00] VITALS: BP 111/74; PULSE 99; RESP 16; TEMP 36.6; O2SAT 100
[2023-03-31] MEDS: Omeprazole 20 MG CAPSULE.DR PO (05:48)
[2023-03-31 07:41] VITALS: BP 130/73; PULSE 86; RESP 16; TEMP 36.6; O2SAT 98
--- NOTE | 2023-03-31 08:20 | HO.PM.IMPN ---
Subjective Subjective Date of Service: 03/31/23 Interval History: no new complaints Physical Exam Vital Signs: Vital Signs: Last Vital Signs Temp 97.9 F 03/31/23 07:41 Pulse 86 03/31/23 07:41 Resp 16 03/31/23 07:41 BP 130/73 03/31/23 07:41 Pulse Ox 98 03/31/23 07:41 O2 Del Method Room Air 03/31/23 07:41 BMI result Body Mass Index 22.1 Const: Other: Constitutional : Awake, interactive, not in distress Neck : Normal inspection, Supple Cardiovascular : RRR, no JVP, no lower extremity edema Respiratory : good bilateral air entry, no crackles, wheezes or rhonchi Gastrointestinal: soft, lax, Normal bowel sounds, Non tender Skin : Warm, Dry Neurological : Alert & oriented x3, No focal deficit Objective Data Active Medications Acetaminophen (Acetaminophen 325 Mg Tablet) 650 mg PO Q6H PRN PRN Reason: Pain, Mild (Pain Scale 1-3) Benzonatate (Benzonatate 100 Mg Capsule) 100 mg PO TID PRN PRN Reason: Cough Docusate Sodium (Docusate Sodium 100 Mg Capsule) 100 mg PO DAILY PRN PRN Reason: Constipation Enoxaparin Sodium (Enoxaparin Sodium 40 Mg/0.4 Ml Syringe) 40 mg SUBCUT Q24H [facility]S [facility]CLUDE 234 BEDS AT THE [facility] Last Admin: 03/30/23 15:43 Dose: 40 mg Documented By: HAILEE Guaifenesin (Guaifenesin La 600 Mg Tab.Er.12h) 600 mg PO BID [facility]S [facility]CLUDE 234 BEDS AT THE [facility] Last Admin: 03/30/23 21:11 Dose: 600 mg Documented By: AMY Melatonin (Melatonin 3 Mg Tablet) 6 mg PO BEDTIME PRN PRN Reason: Insomnia Omeprazole (Omeprazole 20 Mg Capsule.) 20 mg PO BID@0630,1630 [facility]S [facility]CLUDE 234 BEDS AT [facility] Last Admin: 03/31/23 05:48 Dose: 20 mg Documented By: AMY Ondansetron HCl (Ondansetron Hcl 4 Mg/2 Ml Vial) 4 mg IVPUSH Q8H PRN PRN Reason: Nausea and Vomiting Sodium Chloride (0.9 % Sodium Chloride Flush 3 Ml Syringe) 3 ml IVFLUSH QSHIFT COUNTS [facility]CLUDE 234 BEDS AT [facility] Last Admin: 03/30/23 21:11 Dose: 3 ml Documented By: AMY Labs 03/26/23 05:17 03/25/23 09:28 Labs: Laboratory Results - last 24 hr 03/28/23 09:39 TB Test (T-Spot) Com Positive A TB Test Nil Control Passed TB Test Panel A 8 TB Test Panel B 24 TB Test Positive Cntrl Passed Assessment and Plan (1) Hemoptysis: Status: Acute Plan 33M [place] Creole-speaking male with a PMH significant for?TB in 2021 s/p treatment not on home medications who presented to the ED with?epigastric pain and hemoptysis for the past few days. Hemoptysis Concern of TB reactivation vs CAP Chest CT with contrast with tree-in-bud opacities in upper lobes, suspicious for active disease Pending Acid fast smear and culture (They were sent out on 03/28; expected to hear results before the end of the week) T-Spot Pending as well Negative respiratory panel Isolation, droplet and contact precautions Infectious disease input appreciated Completed 5 days ceftriaxone and azithromycin Full Code DVT Prophylaxis: Lovenox Pt will require a hospitalization overnight for further evaluation of possible TB reactivation. Pt will be treated with IV antibiotics, isolation, and specialist consultation pending testing results Quality Stroke Does the patient have a stroke diagnosis?: No VTE Prior VTE?: No VTE Risk Level:: Medical - moderate - high VTE Device Contraindication: Treatment Not Indicated VTE Drug Contraindication: N/A - Med Ordered
[2023-03-31] MEDS: guaiFENesin LA 600 MG TAB.ER.12H PO (09:48)
[2023-03-31] MEDS: 0.9 % Sodium Chloride Flush 3 ML SYRINGE IVFLUSH (09:48)
--- NOTE | 2023-03-31 14:24 | PM.DS ---
DS: Providers Provider Date of Service: 03/31/23 Date of admission: 03/25/23 14:29 Primary care physician: None Physician Consults: 03/25/23 14:27 Consult to Infectious Diseases Routine Consulting Provider: [facility] [place] Infectious Disease Reason for consultation: ?Active TB DS: Diagnosis Discharge Diagnosis (1) Hemoptysis: Status: Acute DS: Summary Hospital Course Hospital Course: from initial hpi: 33-year-old American Creole-speaking male with a PMH significant for?TB in 2021 s/p treatment not on home medications who presents to the ED with?epigastric pain and hemoptysis for the past few days. Pt originally diagnosed with TB while living in [place], reports being treated for 8-9 months. Patient unsure medications he was taking. Patient denies any other PMH or being on any home medications. Recently moved to the area in November of 2022. Patient states symptoms began a few days ago when he developed cough with blood-tinged sputum, epigastric/central chest pain associated with coughing, and fatigue. Denies night sweats, but also notes he has recent unintended weight loss. Has felt feverish but has not taken his temperature. Pt states he felt much worse when he was first diagnosed with TB, as he had night sweats and was coughing up a large amount of blood at that time, not just blood-tinged sputum. He currently resides in a residential and unable to self-isolate. In the ED pt was initially tachycardic up to 115, otherwise vitals WNL. Labs were largely unremarkable. WBC slightly low at 4.5, H&H of slightly low at 13 0.4/39.5. Electrolytes WNL. Renal function baseline. Troponin negative. CXR showed bilateral upper lobe patchy opacity likely infiltrate versus atelectasis. CT?of chest w/ contrast showing micro nodular and tree-in-bud opacities in upper lobes and patchy consolidation in the anterior left lobe, suspicious for active disease. Abnormalities could represent post primary tuberculosis. Did not find any associated lymphadenopathy or pleural effusion. EKG demonstrated normal sinus rhythm without evidence of significant ST elevations or depressions. Pt was treated with ceftriaxone and azithromycin. Pt will be admitted to the hospital for treatment and further evaluation of possible TB reactivation hospital course: patient was admitted for hemoptysis and concern for reactivitation of TB. he received 5 days empiric iv abx for bacterial pneumonia. hemoptysis resolved. aFB sputum was taken for 3 days, AFB negative, culture pending. patient will be discharged home. should follow up final cultures. but likely this was non TB bacterial pneumonia. Time Attestation Discharge coordination time: Greater than 30 minutes Quality: Safe Use of Opioids Does Pt have an Active Cancer Diagnosis on the Problem List?: No Quality: Stroke Does the patient have a stroke diagnosis?: No Physical Exam Vital Signs: Vital Signs: Last Vital Signs Temp 97.9 F 03/31/23 07:41 Pulse 86 03/31/23 07:41 Resp 16 03/31/23 07:41 BP 130/73 03/31/23 07:41 Pulse Ox 98 03/31/23 07:41 O2 Del Method Room Air 03/31/23 07:41 BMI result Body Mass Index 22.1 General: AO X 3, no acute distress Resp: CTA bilateral, no accessory muscles used CVS: S1,S2,RRR GI: soft, non tender, non distended Neuro: motor grossly intact, alert Psych: appropriate affect, appropriate insight DS: Data Data Completed and Pending Labs on day of discharge: Laboratory Results - last 24 hr 03/28/23 09:39 TB Test (T-Spot) Com Positive A TB Test Nil Control Passed TB Test Panel A 8 TB Test Panel B 24 TB Test Positive Cntrl Passed Discharge Plan Discharge Anticipated Discharge Date/Time: 03/31/23 14:15 Patient Disposition: Home, Self-Care Discharge Diagnosis: hemoptysis Referrals: Serina Carter MD [Physician] - 1 week Physician,None [Primary Care Provider] - 2 days Discharge Medications: No Action No Known Home Meds Discharge Orders: Discharge Order (Routine); Ordered 03/31/23 Ordered By: Reji Forbes Diet: Advance to usual diet Activity on Discharge: As tolerated Stand Alone Forms: Patient Portal Discharge page Activity Restrictions/Additional Instructions: Care Plan Goals: recovery Health Concerns: pna, hemoptysis Plan of Treatment: completed abx course, follow up final sputum cultures in about 6 weeks Assessment: see above Patient Instructions: Epigastric Pain (ED)
--- NOTE | 2023-03-31 14:48 | MHC.CM.PN ---
DP: PT HAS BEEN MEDICALLY CLEARED FOR DC HOME, NO SERVICES. PT HAS OWN RIDE HOME.
== END 2023-03-31 14:56 | disposition home or self-care (01) | DRG 139 ==
LOC: HO.ED 11:41 → HO.EDOVER 14:30 → HO.S3 14:43
PROVIDERS: Internal Medicine; Physician Assistant; Admitting Provider Student in an Organized Health Care Education/Training Program; Emergency Provider Emergency Medicine Emergency Medical Services; Visit Provider Internal Medicine
DX: J15.9 Unspecified bacterial pneumonia (principal); R04.2 Hemoptysis; Z86.11 Personal history of tuberculosis
CPT/HCPCS: 36415; 71045; 71260; 80048; 84484; 85025; 85027; 85379; 85610; 86481; 87116; 87206; 87389; 87633; 93005; 99285; J0456; J0696; J1650; Q9967

== ENCOUNTER → 2023-03-25 09:23 | Outpatient (BNV) | payer MEDICAID, SELFPAY | PROVIDERS: Admitting Provider Student in an Organized Health Care Education/Training Program; Emergency Provider Emergency Medicine Emergency Medical Services; Visit Provider Internal Medicine Cardiovascular Disease | DX: R10.9 Unspecified abdominal pain (principal) | CPT/HCPCS: 93010 ==

== ENCOUNTER → 2023-03-25 14:29 | Outpatient (BNV) | payer MEDICAID, SELFPAY | PROVIDERS: Admitting Provider Student in an Organized Health Care Education/Training Program; Emergency Provider Emergency Medicine Emergency Medical Services; Visit Provider Student in an Organized Health Care Education/Training Program | DX: R04.2 Hemoptysis (principal) | CPT/HCPCS: 99223; 99232; 99239 ==

== ENCOUNTER → 2023-03-25 14:29 | Outpatient (BNV) | payer MEDICAID, SELFPAY | PROVIDERS: Admitting Provider Student in an Organized Health Care Education/Training Program; Emergency Provider Emergency Medicine Emergency Medical Services; Visit Provider Internal Medicine | DX: R04.2 Hemoptysis (principal); R10.13 Epigastric pain | CPT/HCPCS: 99499 ==

== ENCOUNTER 2023-05-25 10:18 | Outpatient (REF) | payer MEDICAID, SELFPAY ==
--- NOTE | ~2023-05-25 | XR_ITS ---
EXAMINATION: XR CHEST CLINICAL INFORMATION: Flulike symptoms, fever, body 8 for 4 days COMPARISON: None available. TECHNIQUE: 2 views of the chest were obtained. FINDINGS: vascularity. LUNGS: Bilateral multiple lung nodules mixed with branching and patchy scarlike densities are seen in right and left upper lobes. The largest nodule is seen in left upper lobe measuring 1.3 x 0.8 cm in size. No pneumothorax is seen. BONES: Bony skeleton is intact. XR/XR chest 2V IMPRESSION: Bilateral upper lobe nodules mixed with branching and patchy scarlike densities are seen in both upper lobes, compatible with granulomatous lung infection or other atypical pneumonia.
[2023-05-25 11:30] LABS: MANUAL DIFF FLAG NO
[2023-05-25 11:49] LABS: Basophils Percent Auto 0.4 % (0-2); Eosinophils Percent Auto 0.6 % (0-4); Hematocrit 38.9 % (42.0-52.0); Hemoglobin 13.1 g/dl (14.0-18.0); Imm Gran Abs Auto 0.01 X10*3/uL (0.00-0.03); Imm Gran Pct Auto 0.2 % (0.0-0.4); Lymphocytes Absolute Auto 1.4 X10*3/uL (1.2-4.9); Lymphocytes Percent Auto 25.2 % (20-40); Mean Corpuscular HGB Conc 33.7 g/dl (31.0-36.0); Mean Corpuscular Hemoglobin 28.6 pg (27.0-33.0); Mean Corpuscular Volume 84.9 fL (80.0-98.0); Mean Platelet Volume 10.5 fL (9.4-12.4); Monocytes Absolute Auto 0.7 X10*3/uL (0.1-1.2); Monocytes Percent Auto 13.1 % (2-11); Neutrophils Absolute Auto 3.3 x10*3/uL (2.0-8.3); Neutrophils Percent Auto 60.5 % (45-73); Platelet Count 192 X10*3/uL (160-400); Red Blood Count 4.58 X10*6/uL (4.60-5.80); Red Cell Distribution Width 12.8 % (11.0-16.0); White Blood Count 5.4 X10*3/uL (4.8-10.8)
[2023-05-25 12:33] LABS: Alanine Aminotransferase 18 U/L (0-40); Albumin Level 4.2 g/dL (3.5-5.0); Alkaline Phosphatase 78 U/L (39-117); Anion Gap 11 (12-20); Aspartate Amino Transferase 27 U/L (5-37); Bilirubin Total 0.2 mg/dL (0.0-1.0); Blood Urea Nitrogen 10 mg/dL (9-16); C Reactive Protein 3.74 mg/dL (< or = 0.50); Calcium 9.5 mg/dL (8.4-10.2); Carbon Dioxide 29 mmol/L (22-29); Chloride 104 mmol/L (96-108); Cholesterol 190 mg/dL (<200); Estimated Glomerular Filt Rate > 60; Glucose Random 83 mg/dL (60-115); HDL Cholesterol 51 mg/dL (>40); LDL Cholesterol Calculated 127 mg/dL (<100); Potassium 4.2 mmol/L (3.3-5.1); Sodium 140 mmol/L (135-145); Total Protein 8.2 g/dL (6.5-8.0); Triglycerides 64 mg/dL (<150)
== END 2023-05-25 10:19 | disposition home or self-care (01) ==
LOC: HO.HHCX 10:18
PROVIDERS: Visit Provider Emergency Medicine
DX: R68.89 Other general symptoms and signs (principal); K21.9 Gastro-esophageal reflux disease without esophagitis; R03.0 Elevated blood-pressure reading, without diagnosis of hypertension
CPT/HCPCS: 36415; 71046; 80053; 80061; 85025; 86140

== ENCOUNTER 2023-11-23 10:49 | Outpatient (REF) | payer MEDICAID, SELFPAY ==
[2023-11-23 14:57] LABS: Iron 77 mcg/dL (45-160); Percent Iron Saturation 34 % (15-50); Total Iron Binding Capacity 225 mcg/dL (228-428); Unsaturated Iron Binding 148 ug/dL
[2023-11-23 15:15] LABS: Ferritin 167 ng/mL (20-250)
[2023-11-23 15:20] LABS: Folate 6.8 ng/mL (> or = 4.0); Vitamin B12 751 pg/mL (200-900)
[2023-11-25 21:58] LABS: TS Negative Control Passed; TS Panel A 5; TS Panel B 12; TS Positive Control Passed; TSpotTB Positive (Negative)
== END 2023-11-23 10:50 | disposition home or self-care (01) ==
LOC: HO.CHCLDS 10:49
PROVIDERS: Visit Provider Emergency Medicine
DX: Z11.1 Encounter for screening for respiratory tuberculosis (principal); D64.9 Anemia, unspecified; R68.89 Other general symptoms and signs
CPT/HCPCS: 36415; 82607; 82728; 82746; 83540; 86481

== ENCOUNTER 2024-07-03 09:06 | Outpatient (REF) | payer MEDICAID, SELFPAY ==
[2024-07-03 14:19] LABS: MANUAL DIFF FLAG NO
[2024-07-03 14:25] LABS: Eosinophils Absolute Auto 0.2 X10*3/uL (0.0-0.4); Eosinophils Percent Auto 4.5 % (0-4); Hematocrit 38.7 % (42.0-52.0); Hemoglobin 13.1 g/dl (14.0-18.0); Lymphocytes Absolute Auto 2.2 X10*3/uL (1.2-4.9); Lymphocytes Percent Auto 54.3 % (20-40); Mean Corpuscular HGB Conc 33.9 g/dl (31.0-36.0); Mean Corpuscular Hemoglobin 29.4 pg (27.0-33.0); Monocytes Absolute Auto 0.4 X10*3/uL (0.1-1.2); Monocytes Percent Auto 10.6 % (2-11); Neutrophils Absolute Auto 1.2 x10*3/uL (2.0-8.3); Neutrophils Percent Auto 29.6 % (45-73); Platelet Count 142 X10*3/uL (160-400); Red Blood Count 4.45 X10*6/uL (4.60-5.80)
[2024-07-03 14:52] LABS: Alanine Aminotransferase 35 U/L (0-40); Alkaline Phosphatase 67 U/L (39-117); Anion Gap 7 (12-20); Aspartate Amino Transferase 42 U/L (5-37); Bilirubin Total 0.2 mg/dL (0.0-1.0); Blood Urea Nitrogen 10 mg/dL (9-16); Calcium 9.1 mg/dL (8.4-10.2); Carbon Dioxide 30 mmol/L (22-29); Chloride 107 mmol/L (96-108); Estimated Glomerular Filt Rate > 60; Glucose Random 87 mg/dL (60-115); Potassium 3.4 mmol/L (3.3-5.1); Sodium 141 mmol/L (135-145)
[2024-07-03 15:12] LABS: TSH reflex Free T4 2.04 uIU/mL (0.32-4.0)
[2024-07-04 04:01] LABS: HIV AB/AG Nonreactive (Nonreactive); HIV Num 1 0.06 S/CO (0.00-0.99)
[2024-07-04 12:59] LABS: HCV Log PCR <1.18 NOT DETECTED Log IU/mL (NOT DETECTED); HepC Viral Load <15 NOT DETECTED IU/mL (NOT DETECTED)
== END 2024-07-03 09:07 | disposition home or self-care (01) ==
LOC: HO.CHCLDS 09:06
PROVIDERS: Visit Provider Internal Medicine
DX: Z00.00 Encounter for general adult medical examination without abnormal findings (principal); Z11.4 Encounter for screening for human immunodeficiency virus [HIV]; Z11.59 Encounter for screening for other viral diseases; Z13.29 Encounter for screening for other suspected endocrine disorder
CPT/HCPCS: 36415; 80053; 84443; 85025; 87389; 87522